=== PATIENT | female | born 1970 | race African-American/Black ===

== ENCOUNTER 2020-06-28 18:54 | Emergency (ER) | payer SELFPAY ==
[~2020-06-28] VITALS: Ht 175.3 cm; Wt 73.0 kg
[~2020-06-28 18:54] MED LIST: VICODIN
[2020-06-28 18:55] VITALS: BP 165/85
[2020-06-28] MEDS ORDERED: BACITRACIN ZINC OINT UDPKT TOP ONE (20:00)
[2020-06-28] MEDS ORDERED: HYDROCODONE/ACETAMINOPHEN 5/325MG TABLET PO ONE (20:00)
[2020-06-28] MEDS ORDERED: ONDANSETRON 4MG ODT PO ONE (20:00)
[2020-06-28] MEDS ORDERED: LIDOCAINE HCL/PF 1% 10 MG/ML 5ML VIAL IJ ONE (20:00)
[2020-06-28] MEDS ORDERED: TETANUS, DIPHTHERIA, PERTUSSIS VAC/PF 0.5ML (>7YR OLD) IM ONE (20:00)
== END 2020-06-28 22:14 | disposition home or self-care (01) ==
LOC: ER 18:54
DX: S61.011A Laceration without foreign body of right thumb without damage to nail, initial encounter (principal); I10 Essential (primary) hypertension; W26.8XXA Contact with other sharp object(s), not elsewhere classified, initial encounter; Y93.89 Activity, other specified; Y92.9 Unspecified place or not applicable
CPT/HCPCS: 12002; 73140; 90471; 90715; 99284; J3490; Q0162

== ENCOUNTER 2020-06-30 17:25 | Emergency (ER) | payer SELFPAY ==
[~2020-06-30] VITALS: Ht 170.2 cm; Wt 73.5 kg
[2020-06-30 18:07] VITALS: BP 147/91
== END 2020-06-30 18:07 | disposition home or self-care (01) ==
LOC: ER 17:25
DX: Z48.00 Encounter for change or removal of nonsurgical wound dressing (principal)
CPT/HCPCS: 99281

== ENCOUNTER 2024-08-28 22:16 | Emergency (ER) | payer MEDICAID ==
[~2024-08-28] VITALS: Ht 170.2 cm; Wt 77.0 kg
[2024-08-28 22:21] VITALS: O2SAT 97
[2024-08-28 22:45] VITALS: TEMP 36.72516
[2024-08-28] MEDS: ONDANSETRON HCL 4MG/2ML INJ IV STA (23:33)
[2024-08-28] MEDS: MORPHINE SULFATE 4 MG/ML INJ (FOR IV/IM USE) IV STA (23:33)
[2024-08-28 23:49] LABS: CHLORIDE 104 mEq/L (98-107); POTASSIUM 3.3 mEq/L (3.5-5.1); SODIUM 140 mEq/L (136-145)
[2024-08-28 23:50] LABS: CALCIUM 9.9 mg/dL (8.7-10.4); CARBON DIOXIDE 27 mEq/L (21-32)
[2024-08-28 23:55] LABS: CREATININE 1.1 mg/dL (0.6-1.0); GLUCOSE 116 mg/dL (70-105); UREA NITROGEN BLOOD 19 mg/dL (9-23)
[2024-08-29 00:30] VITALS: BP 119/75; PULSE 78; RESP 17; O2SAT 99
[2024-08-29] MEDS ORDERED: IBUP-2029 MT (01:41)
[2024-08-29] MEDS ORDERED: METH-653 MT (01:41)
== END 2024-08-29 05:19 | disposition home or self-care (01) ==
LOC: ER 22:16
DX: S40.012A Contusion of left shoulder, initial encounter (principal); I10 Essential (primary) hypertension; F15.10 Other stimulant abuse, uncomplicated; M54.2 Cervicalgia; V00.141A Fall from scooter (nonmotorized), initial encounter; Y93.89 Activity, other specified; Y92.89 Other specified places as the place of occurrence of the external cause; Y99.8 Other external cause status
CPT/HCPCS: 99285; 96374; 71045; 96375; 80048; 36415; 72170; 73030; 73060; 73090; 73120; 70450; 72125; 74176; J2405; J2270